=== PATIENT | female | born 1965 | race Caucasian/White ===

== ENCOUNTER → 2020-04-15 | Outpatient (CLI) | payer OTHER ==
--- NOTE | 2020-04-15 18:37 | DRAGON STRESS TEST REPORT ---
Exercise nuclear stress test Date: 04/15/2020 Referring physician: Xochilt Santos DO Performing physician: Kervin Onofre MD Indication: Chest pain Clinical history 55 year old lady with dyslipidemia, nicotine dependence with intermittent chest pain. Procedure The patient presented to the stress lab. Initially rest images were obtained according to standard protocol after the injection of 11.61 millicurie technetium 99m sestamibi. Subsequently the patient underwent exercise nuclear stress test according to [employer] protocol. The patient exercised on the treadmill according to [employer] protocol for a total of 8 minutes and 11 seconds achieving a maximum heart rate of 157 bpm which was 95% of maximum predicted of 165 bpm. The maximum workload was 10.10 METS. The presenting EKG showed sinus rhythm at [address] depression in the inferior leads. The initial blood pressure was 123/70 mmHg. Upon exercise the heart rate omar to a maximum of 157 beats per minute and the blood pressure omar to a maximum of 170/53 mmHg. The patient had appropriate increment in heart rate and blood pressure with exercise. At peak exercise the patient was injected with 34.3 millicuries of technetium 99m sestamibi. The patient continued to run on the treadmill for another 60 seconds. The exercise EKG was equivocal for myocardial ischemia. There was baseline ST depression in the inferior leads which was mildly accentuated during exercise but did not meet criteria for myocardial ischemia. The recovery EKG did not reveal any evidence of myocardial ischemia. The patient tolerated the exercise well and did not report chest pain or dyspnea. The test was terminated on account of patient fatigue and patient having achieved target heart rate. The patient's EKG and vital signs were monitored throughout the procedure. After a period of rest, stress images were obtained according to standard protocol. Raw as well as processed rest and stress images were reviewed. There was mild gut uptake which did not interfere with the study. The rest and stress images show uniform uptake of radioactive isotope without any fixed or reversible defects to suggest myocardial ischemia or myocardial infarction. There is normal contractility post-stress. The calculated ejection fraction is 57 %. The TID ratio is 1.08. Conclusion The exercise EKG is equivocal for myocardial ischemia. There is no scintigraphic evidence for myocardial ischemia or myocardial infarction. Fair exercise tolerance. Normal heart rate and blood pressure response to exercise. There is normal contractility post stress. Gated left ventricular ejection fraction is estimated at 57 %. MTDD
== END ==
LOC: RAD 07:55
PROVIDERS: ATTEND Internal Medicine
DX: R07.89 Other chest pain (principal); I25.9 Chronic ischemic heart disease, unspecified
CPT/HCPCS: 93017; 78452; A9500; Q9969